=== PATIENT | male | born 1970 | race African-American/Black ===

== ENCOUNTER 2017-05-07 10:54 | Emergency (ER) | payer SELFPAY ==
[~2017-05-07] VITALS: Ht 180.3 cm; Wt 100.0 kg
[2017-05-07] MEDS ORDERED: ACETAMINOPHEN WITH CODEINE 300/30MG TABLET PO ONE (12:45)
[2017-05-07 14:25] VITALS: BP 122/79
== END 2017-05-07 14:25 | disposition home or self-care (01) ==
LOC: ER 13:46
DX: S93.402A Sprain of unspecified ligament of left ankle, initial encounter (principal); G43.909 Migraine, unspecified, not intractable, without status migrainosus; X50.1XXA Overexertion from prolonged static or awkward postures, initial encounter; Y93.89 Activity, other specified; Y92.89 Other specified places as the place of occurrence of the external cause; Y99.8 Other external cause status
CPT/HCPCS: 73610; 99284